=== PATIENT | female | born 1965 | race Caucasian/White ===

== ENCOUNTER 2021-09-28 18:55 | Emergency (ER) | payer MEDICAID ==
--- NOTE | 2021-09-28 19:13 | NUR ---
CALLED PATIENT NO ANSWER
--- NOTE | 2021-09-28 19:22 | NUR ---
CALLED PATIENT NO ANSWER
--- NOTE | 2021-09-28 19:22 | NUR ---
PATIENT LEFT WITHOUT BEING SEEN BY DR. BELTRAN. NO FURTHER CARE PROVIDED FOR PATIENT.
== END 2021-09-28 19:13 | disposition left against medical advice (07) ==
LOC: MED 18:55
DX: R10.9 Unspecified abdominal pain (principal); Z53.21 Procedure and treatment not carried out due to patient leaving prior to being seen by health care provider

== ENCOUNTER 2021-09-28 20:05 | Emergency (ER) | payer MEDICAID ==
[~2021-09-28] VITALS: Ht 167.6 cm; Wt 52.2 kg
[2021-09-28 20:07] VITALS: BP 145/83
[2021-09-28 21:13] LABS: BASOPHILS % (AUTO) 0.3 % (0.0-2.0); EOSINOPHILS % (AUTO) 0.1 % (0.0-4.0); HEMOGLOBIN 11.9 g/dL (12.0-16.0); LYMPHOCYTES # (AUTO) 0.9 K/uL (2.5-16.5); LYMPHOCYTES % (AUTO) 7.8 % (20.5-51.1); MEAN CORPUSCULAR HEMOGLOBIN 30 pg (27-31); MEAN CORPUSCULAR HGB CONC 33 g/dL (33-37); MEAN CORPUSCULAR VOLUME 89.4 fL (80-94); MONOCYTES # (AUTO) 0.4 K/uL (0.8-1.0); MONOCYTES % (AUTO) 3.2 % (1.7-9.3); NEUTROPHILS # (AUTO) 10.4 K/uL (1.8-7.7); NEUTROPHILS % (AUTO) 88.6 % (42.2-75.2); PLATELET COUNT (AUTO) 363 K/uL (140-450); RED BLOOD CELL COUNT(AUTO) 4.03 MIL/uL (4.20-5.40); RED CELL DISTRIBUTION WIDTH 14.2 % (11.6-13.7); WHITE BLOOD COUNT (AUTO) 11.8 K/uL (4.8-10.8)
[2021-09-28] MEDS: ONDANSETRON 4 MG/2 ML VIAL IVP ONE (21:21)
[2021-09-28] MEDS: KETOROLAC 30 MG/ML VIAL IVP ONE (21:22)
[2021-09-28] MEDS: NACL 0.9% 1,000 ML IV SCH (21:27)
[2021-09-28 21:32] LABS: ANION GAP 12.6 (8-16); CARBON DIOXIDE 27.5 mmol/L (21-32); CREATININE 0.8 mg/dL (0.6-1.3); POTASSIUM 4.1 mmol/L (3.5-5.1); TOTAL BILIRUBIN 0.3 mg/dL (0.0-1.0)
[2021-09-29 05:41] VITALS: BP 119/51
== END 2021-09-29 05:50 | disposition home or self-care (01) ==
LOC: MED 20:05
DX: A05.9 Bacterial foodborne intoxication, unspecified (principal); Z20.822 Contact with and (suspected) exposure to COVID-19; N13.1 Hydronephrosis with ureteral stricture, not elsewhere classified; R11.2 Nausea with vomiting, unspecified; E11.9 Type 2 diabetes mellitus without complications; I10 Essential (primary) hypertension; F17.210 Nicotine dependence, cigarettes, uncomplicated; Z90.710 Acquired absence of both cervix and uterus; Z90.49 Acquired absence of other specified parts of digestive tract; Z98.890 Other specified postprocedural states
CPT/HCPCS: 36415; 74176; 76705; 80053; 81002; 83690; 85025; 87426; 96361; 96374; 96375; 99284; J1885; J2405; J7030; Q0092

== ENCOUNTER 2022-06-04 18:30 | Emergency (ER) | payer MEDICAID ==
[~2022-06-04] VITALS: Ht 167.6 cm; Wt 48.5 kg
[2022-06-04 18:32] VITALS: BP 108/86
== END 2022-06-04 21:01 | disposition left against medical advice (07) ==
LOC: MED 18:30
DX: H92.02 Otalgia, left ear (principal); Z53.21 Procedure and treatment not carried out due to patient leaving prior to being seen by health care provider